=== PATIENT | male | born 1990 ===

== ENCOUNTER 2021-05-22 20:12 | Emergency (ER) | payer SELFPAY ==
[2021-05-22 22:10] LABS: Basophils % (Auto) 0.3 % (0.0-1.8); Eosinophils # (Auto) 0.2 K/mm3 (0.0-0.4); Hemoglobin 17.1 gm/dl (11.8-15.2); Lymphocytes # (Auto) 0.5 K/mm3 (1.2-5.4); Lymphocytes % (Auto) 3.5 % (13.4-35.0); Mean Corpuscular HGB Conc 34 % (32-34); Mean Corpuscular Volume 86 fl (84-94); Monocytes # (Auto) 1.1 K/mm3 (0.0-0.8); Monocytes % (Auto) 7.1 % (0.0-7.3); Platelet Count 235 K/mm3 (140-440); Red Cell Distribution Width 14.2 % (13.2-15.2)
[2021-05-22 22:22] LABS: Alanine Aminotransferase 24 units/L (7-56); Albumin 4.8 g/dL (3.9-5); BUN/Creatinine Ratio 40; Blood Urea Nitrogen 40 mg/dL (9-20); Calcium 9.6 mg/dL (8.4-10.2); Hemolysis Index 16
[2021-05-22 22:39] VITALS: BP 99/65
[2021-05-22] MEDS ORDERED: MORPHINE 4 MG/1 ML INJ IV ONE (23:40)
[2021-05-22] MEDS ORDERED: FAMOTIDINE 20 MG/2 ML INJ IV ONE (23:40)
[2021-05-22] MEDS ORDERED: SODIUM CHLORIDE 0.9% 1000 ML 1,000 ML IV ONE (23:40)
[2021-05-22] MEDS ORDERED: ONDANSETRON 4 MG/2 ML INJ IV ONE (23:40)
[2021-05-22 23:50] LABS: Bilirubin,Urine NEG (Negative); Blood,Urine NEG (Negative); Color,Urine Amber (Yellow); Hyaline Casts,Urine 1 /LPF; Mucus,Urine 1+ /HPF; Urobilinogen,Urine < 2.0 mg/dL (<2.0)
--- NOTE | 2021-05-23 01:05 | Cat Scan Report ---
CT ABDOMEN AND PELVIS WITH CONTRAST HISTORY: R.L.Q. abdominal pain. COMPARISON: None. TECHNIQUE: CT images of the abdomen and pelvis were obtained following administration of intravenous contrast. All CT scans at this location are performed using CT dose reduction for ALARA by means of automated exposure control. CONTRAST: 100 ml of intravenous contrast administered. FINDINGS: Lungs/bones: No acute findings Abdomen/pelvis: Liver, spleen, adrenal glands, pancreas, gallbladder and upper GI tract appear donna l. Bilateral kidneys appear normal the appendix appears normal. There is no bowel obstruction is iden tified there may be some thickening of the hepatic flexure and transverse colon wall however there is incomplete distention. Questionable thickening of the distal sigmoid colon into the rectum. Right in guinal hernia containing fat. IMPRESSION: 1. No CT evidence for appendicitis. 2. Questionable thickening of the hepatic flexure and transverse colon. Findings could represent a mi ld colitis however could also be secondary to incomplete distention. Clinical correlation. No bowel o bstruction is seen. 3. Right fat-containing inguinal hernia. Signer Name: Bryan Baptiste MD Signed: 05/23/2021 1:00 AM Workstation Name: [id number]
[2021-05-23] MEDS ORDERED: metroNIDAZOLE/NS 500 MG/100 ML 500 MG/100 ML BAG IV ONE (01:10)
[2021-05-23] MEDS ORDERED: levoFLOXacin 500 MG TAB PO ONE (01:10)
[2021-05-23] MEDS ORDERED: PIPERACIL/TAZOBACTA 4.5/NS 100 4.5 GM/100 ML VIAL IV ONE (01:11)
--- NOTE | 2021-05-23 01:48 | Emergency Department Report ---
<HAYDEE BARRY - Last Filed: 05/23/21 01:35> ED Abdominal Pain HPI - General Chief Complaint: Abdominal Pain Stated Complaint: SEVERE STOMACH PAIN Source: patient Mode of arrival: Ambulatory Limitations: No Limitations - History of Present Illness Initial Comments: Patient is a 31-year-old male with no past medical history presents to the ED with complaint of acute onset persistent diffuse abdominal pain that radiates to the lower abdomen specifically in the right lower quadrant and left lower quadrant with nausea and vomiting and intermittent diarrhea for the last 5 days, worse in the last 24 hours. Patient states that the last time he ex perienced nausea and vomiting or diarrhea was about 12 hours ago but the pain has been persistent and constant. Patient states that the pain is crampy, sharp and persistent. Patient denies dizziness, fever, chills, chest pain, shortness of breath, dysuria, urinary frequency and urgency, testicular pain, back pain, hematuria or headache, traumatic injury or hematemesis and hematochezia. MD Complaint: abdominal pain, other (Nausea and vomiting) -: Sudden, days(s) (5) Location: diffuse Radiation: LLQ, RLQ Migration to: no migration Severity: severe Severity scale (0 -10): 8 Quality: cramping, aching, sharp Consistency: constant Improves With: nothing Worsens With: nothing Associated Symptoms: denies other symptoms, nausea, vomiting, diarrhea, anorexia. denies: fever, chills, constipation, dysuria, hematemesis, hematochezia, melena, hematuria, syncope, other - Related Data Previous Rx's Medication Instructions Recorded Last Taken Type Ciprofloxacin HCl 500 mg PO Q12H #20 tablet 05/23/21 Unknown Rx Dicyclomine [Bentyl] 20 mg PO Q6H PRN #30 tablet 05/23/21 Unknown Rx Ibuprofen [Motrin] 600 mg PO Q8H PRN #30 tablet 05/23/21 Unknown Rx Ondansetron [Zofran Odt] 4 mg PO Q8HR PRN #20 tab.rapdis 05/23/21 Unknown Rx metroNIDAZOLE [Flagyl] 500 mg PO Q8HR #30 tab 05/23/21 Unknown Rx Allergies Allergy/AdvReac Type Severity Reaction Status Date / Time No Known Allergies Allergy Unverified 05/22/21 21:40 ED Review of Systems Constitutional: denies: chills, fever Eyes: denies: eye pain, eye discharge, vision change ENT: denies: ear pain, throat pain Respiratory: denies: cough, shortness of breath, wheezing Cardiovascular: denies: chest pain, palpitations Endocrine: no symptoms reported Gastrointestinal: abdominal pain, nausea, vomiting, diarrhea Genitourinary: denies: urgency, dysuria Musculoskeletal: denies: back pain, joint swelling, arthralgia Skin: denies: rash, lesions Neurological: denies: headache, weakness, paresthesias Psychiatric: denies: anxiety, depression Hematological/Lymphatic: denies: easy bleeding, easy bruising ED Past Medical Hx - Past Medical History Previous Medical History?: No - Medications Home Medications: Home Medications Medication Instructions Recorded Confirmed Last Taken Type Ciprofloxacin HCl 500 mg PO Q12H #20 tablet 05/23/21 Unknown Rx Dicyclomine [Bentyl] 20 mg PO Q6H PRN #30 tablet 05/23/21 Unknown Rx Ibuprofen [Motrin] 600 mg PO Q8H PRN #30 tablet 05/23/21 Unknown Rx Ondansetron [Zofran Odt] 4 mg PO Q8HR PRN #20 tab.rapdis 05/23/21 Unknown Rx metroNIDAZOLE [Flagyl] 500 mg PO Q8HR #30 tab 05/23/21 Unknown Rx ED Physical Exam - General Limitations: No Limitations General appearance: alert, in no apparent distress - Head Head exam: Present: atraumatic, normocephalic, normal inspection - Eye Eye exam: Present: normal appearance, PERRL, EOMI Pupils: Present: normal accommodation - ENT ENT exam: Present: normal exam, normal orophraynx, mucous membranes moist, TM's normal bilaterally, normal external ear exam - Neck Neck exam: Present: normal inspection, full ROM - Respiratory Respiratory exam: Present: normal lung sounds bilaterally. Absent: respiratory distress, wheezes, rales, rhonchi, chest wall tenderness, accessory muscle use, decreased breath sounds - Cardiovascular Cardiovascular Exam: Present: regular rate, normal rhythm, normal heart sounds. Absent: systolic murmur, diastolic murmur, rubs, gallop - GI/Abdominal GI/Abdominal exam: Present: soft, tenderness (Palpable diffuse abdominal tenderness, worse in the left lower quadrant), normal bowel sounds. Absent: guarding, rebound, rigid, hyperactive bowel sounds, hypoactive bowel sounds, organomegaly, mass - Extremities Exam Extremities exam: Present: normal inspection, full ROM, normal capillary refill - Back Exam Back exam: Present: normal inspection, full ROM. Absent: tenderness, CVA tenderness (R), CVA tenderness (L), muscle spasm, paraspinal tenderness, vertebral tenderness - Neurological Exam Neurological exam: Present: alert, oriented X3, CN II-XII intact, normal gait, reflexes normal - Psychiatric Psychiatric exam: Present: normal affect, normal mood - Skin Skin exam: Present: warm, dry, intact, normal color. Absent: rash ED Medical Decision Making - Lab Data Result diagrams: 05/22/21 21:51 05/22/21 21:51 - Radiology Data Radiology results: report reviewed, [place] [address] Cat Scan Report Signed Patient: BEKAH TAN MR#: [id number] : 1990 Acct:[id number] Age/Sex: 31 / M ADM Date: 05/22/21 Loc: ED Attending Dr: Ordering Physician: SORAIDA GRISSOM Date of Service: 05/22/21 Procedure(s): CT abdomen pelvis w con Accession Number(s): [id number] cc: SORAIDA GRISSOM CT ABDOMEN AND PELVIS WITH CONTRAST HISTORY: R.L.Q. abdominal pain. COMPARISON: None. TECHNIQUE: CT images of the abdomen and pelvis were obtained following administration of intravenous contrast. All CT scans at this location are performed using CT dose reduction for ALARA by means of automated exposure control. CONTRAST: 100 ml of intravenous contrast administered. FINDINGS: Lungs/bones: No acute findings Abdomen/pelvis: Liver, spleen, adrenal glands, pancreas, gallbladder and upper GI tract appear normal. Bilateral kidneys appear normal the appendix appears normal. There is no bowel obstruction is identified there may be some thickening of the hepatic flexure and transverse colon wall however there is incomplete distention. Questionable thickening of the distal sigmoid colon into the rectum. Right inguinal hernia containing fat. IMPRESSION: 1. No CT evidence for appendicitis. 2. Questionable thickening of the hepatic flexure and transverse colon. Findings could represent a mild colitis however could also be secondary to incomplete distention. Clinical correlation. No bowel obstruction is seen. 3. Right fat-containing inguinal hernia. Signer Name: Bryan Baptiste MD Signed: 05/23/2021 1:00 AM Workstation Name: [id number] Transcribed By: CW Dictated By: AURELIA BAPTISTE MD Electronically Authenticated By: AURELIA BAPTISTE MD Signed Date/Time: 05/23/2199 DD/ TD/TT: - Medical Decision Making This is a 31-year-old male with no past medical history presents to the ED with complaint of acute onset persistent diffuse abdominal pain that radiates to the lower abdomen specifically in the right lower quadrant and left lower quadrant with nausea and vomiting and intermittent diarrhea for the last 5 days, worse in the last 24 hours. Patient states that the last time he experienced nausea and vomiting or diarrhea was about 12 hours ago but the pain has been persistent and constant. Patient states that the pain is crampy, sharp and persistent. - Differential Diagnosis Colitis; appendicitis; Kidney stones; Gastroenteritis; Pancreatitis ED Disposition Clinical Impression: Abdominal pain in male, Nausea, vomiting and diarrhea, Dehydration, Acute colitis Disposition: DC- TO HOME OR SELFCARE Is pt being admited?: No Does the pt Need Aspirin: No Condition: Stable Instructions: Nausea and Vomiting, Adult, [id number], Dehydration, Adult, [id number], Abdominal Pain, Adult, [id number], Colitis, Diarrhea, Adult, [id number] Additional Instructions: Todos los resultados de las pruebas de laboratorio fueron revisados ??y todos no son factibles, excepto por un BUN elevado consistente con deshidratacin y leucocitosis aguda de 14,900. La tomografa computarizada de abdomen y pelvis con contraste mostr un engrosamiento cuestionable del ngulo heptico y del colon transverso, lo que podra representar itz colitis leve, sanya tambin podra ser secundario a itz distensin incompleta. Sin embargo, no se observa obstruccin intestinal. Adems, hay un hallazgo incidental de hernia inguinal de recha que contiene grasa. Por lo tanto, tome analgsicos segn sea necesario, antiemticos y antibiticos orales para la sospecha de infeccin del colon, y guillermo un seguimiento con mckenzie mdico de atencin primaria en 7 a 10 burgess para itz reevaluacin. Regrese al servicio de urgencias de inmediato si los sntomas empeoran. Prescriptions: Dicyclomine [Bentyl] 20 mg PO Q6H PRN #30 tablet PRN Reason: Abdominal pain Ciprofloxacin HCl 500 mg PO Q12H #20 tablet metroNIDAZOLE [Flagyl] 500 mg PO Q8HR #30 tab Ibuprofen [Motrin] 600 mg PO Q8H PRN #30 tablet PRN Reason: Pain Ondansetron [Zofran Odt] 4 mg PO Q8HR PRN #20 tab.rapdis PRN Reason: Nausea Referrals: [facility] [Provider Group] - 3-5 Days Forms: Work/School Release Form(ED) Time of Disposition: 01:51 Print Language: SOMALI <GAETANO ERVIN III - Last Filed: 05/23/21 22:48> ED Review of Systems ROS: Stated complaint: SEVERE STOMACH PAIN Other details as noted in HPI ED Course Vital Signs 05/22/21 05/23/21 21:38 04:00 Temperature 98.3 F Pulse Rate 82 83 Respiratory 18 16 Rate Blood Pressure 99/65 O2 Sat by Pulse 96 99 Oximetry - Reevaluation(s) Reevaluation #1: I reviewed the findings and management of this patient in real-time and I have personally seen and examined this patient and participated in the decision making for this patient with the midlevel. Patient is a 31-year-old male that presents emergency room with complaints of abdominal pain, nausea and vomiting. Patient is already received antiemetics and fluids. Patient states he is feeling better. Patient will be given Zosyn and prepared for discharge. Patient will be discharged home with Cipro and Flagyl. I examined patient. Patient lung sounds are clear to auscultation. Patient's abdomen is mildly tender. Patient's CV exam shows a normal S1-S2 no murmurs noted. Patient does not appear ill. Vital signs are reassuring. I discussed all results and clinical findings with patient. I discussed plan of care with patient. Patient agrees with plan of care. Patient is stable for discharge. Patient will be discharged home. Patient given discharge instructions. Patient voiced understanding of discharge instructions. 05/23/21 00:11 ED Medical Decision Making - Lab Data Result diagrams: 05/22/21 21:51 05/22/21 21:51 Critical care attestation.: If time is entered above; I have spent that time in minutes in the direct care of this critically ill patient, excluding procedure time. ED Disposition Is pt being admited?: No Does the pt Need Aspirin: No
== END 2021-05-23 04:00 | disposition home or self-care (01) ==
LOC: ED 20:12
DX: E86.0 Dehydration (principal); K52.9 Noninfective gastroenteritis and colitis, unspecified; R10.9 Unspecified abdominal pain; R11.2 Nausea with vomiting, unspecified; Z79.899 Other long term (current) drug therapy
CPT/HCPCS: 36415; 74177; 80053; 81001; 83690; 85025; 96361; 96365; 96375; 99284; J2270; J2405; J2543; J7030; Q9967